=== PATIENT | female | born 1940 | race Caucasian/White ===

== ENCOUNTER 2017-10-12 15:45 | Emergency (ER) | payer MEDICARE, OTHER, MEDICAID ==
[2017-10-12 17:20] LABS: #Basophils 0.1 thou/uL (0.0-0.2); #Eosinphils 0.1 thou/uL (0.0-0.7); #Lymphocytes 3.3 thou/uL (1.20-3.40); #Monocytes 0.6 thou/uL (0.11-0.59); #Neutrophils 4.7 thou/uL (1.40-6.50); %Eosinophils 1.6 % (0.0-10.0); %Lymphocytes 37.4 % (21.0-51.0); %Monocytes 6.9 % (0.0-10.0); Hematocrit 41.2 % (36.0-47.0); Mean Platelet Volume 6.3 fL (7.4-10.4); Red Blood Cell (RBC) Count 4.38 mill/uL (4.20-5.40); White Blood Cell (WBC) Count 8.9 thou/uL (4.8-10.8)
[2017-10-12 17:42] LABS: ALT (SGPT) 12 U/L (8-55); AST (SGOT) 15 U/L (5-34); Alkaline Phosphatase 109 U/L (40-150); Anion Gap 13 mmol/L (10-20); BUN (Urea Nitrogen) 17 mg/dL (9.8-20.1); Bilirubin, Total 0.9 mg/dL (0.2-1.2); CK (CPK) 37 U/L (29-168); Calc. Creatinine Clearance 0 mL/min (70-130); Calcium 9.6 mg/dL (7.8-10.44); Carbon Dioxide 24 mmol/L (23-31); Chloride 100 mmol/L (98-107); Estimated GFR-MDRD 54; Globulin 3.3 g/dL (2.4-3.5); Magnesium 1.9 mg/dL (1.6-2.6); Protein, Total 7.3 g/dL (6.0-8.3)
[2017-10-12 17:46] LABS: Troponin I Less than 0.010 ng/mL (< 0.028)
--- NOTE | 2017-10-12 18:00 | CT ---
CT BRAIN WITHOUT CONTRAST: Date: 10/12/17 HISTORY: Injury. COMPARISON: CT brain dated 03/02/17. FINDINGS: Left parieto-occipital and encephalomalacia is similar. There is, however, new from the prior examina tion encephalomalacia of the inferior left frontal lobe. Extensive microvascular ischemic changes. No hemorrhage. Left frontal calcified extra-axial mass is similar. No hydrocephalus. Moderate atrophy . IMPRESSION: 1. No acute hemorrhage. 2. New from the comparison examination left inferior frontal encephalomalacia likely from an infarct ion. 3. Extensive chronic microvascular ischemic changes. POS: [facility]
--- NOTE | 2017-10-12 18:01 | CT ---
CT CERVICAL SPINE WITHOUT CONTRAST: HISTORY: Injury. Fall. COMPARISON: CT cervical spine 01/03/2017. FINDINGS: The occipital condyles and odontoid process are intact. There is no acute fracture or malalignment. Moderate uncinate process hypertrophy from C4-C7. There is anterolisthesis 2 mm of C4 on C5. Moderate degenerative disc space height loss at C5-6 and C6-7. The mastoids are clear. Lung apices are clear. IMPRESSION: No acute fracture or malalignment of the cervical spine. POS: [facility]
--- NOTE | 2017-10-12 18:21 | RAD ---
CHEST ONE VIEW HISTORY: Fall. COMPARISON: Chest one view 03/02/2017. FINDINGS: Port-A-Cath is in place with the tip at the inferior SVC. Cardiac silhouette and mediastinal contour s are similar. No pulmonary consolidation, pneumothorax, or effusion. IMPRESSION: No acute intrathoracic abnormality. POS: [facility]
== END 2017-10-12 19:00 ==
LOC: ERS 15:45
DX: S00.03XA Contusion of scalp, initial encounter (principal); E11.9 Type 2 diabetes mellitus without complications; I10 Essential (primary) hypertension; E78.5 Hyperlipidemia, unspecified; Z79.82 Long term (current) use of aspirin; Z79.84 Long term (current) use of oral hypoglycemic drugs; Z79.02 Long term (current) use of antithrombotics/antiplatelets; Z79.899 Other long term (current) drug therapy; W19.XXXA Unspecified fall, initial encounter
CPT/HCPCS: 36415; 70450; 71010; 72125; 80053; 82550; 82553; 83735; 84484; 85025; 93005

== ENCOUNTER 2017-10-20 11:12 | Emergency (ER) | payer MEDICARE, OTHER, MEDICAID ==
[2017-10-20 12:24] LABS: #Eosinphils 0.1 thou/uL (0.0-0.7); #Lymphocytes 2.1 thou/uL (1.20-3.40); #Monocytes 0.4 thou/uL (0.11-0.59); #Neutrophils 4.6 thou/uL (1.40-6.50); %Basophils 0.2 % (0.0-1.0); %Eosinophils 0.8 % (0.0-10.0); %Lymphocytes 29.5 % (21.0-51.0); %Monocytes 5.2 % (0.0-10.0); Mean Platelet Volume 6.2 fL (7.4-10.4); Red Blood Cell (RBC) Count 4.38 mill/uL (4.20-5.40); White Blood Cell (WBC) Count 7.2 thou/uL (4.8-10.8)
--- NOTE | 2017-10-20 12:28 | CT ---
NONCONTRAST BRAIN CT SCAN: Date: 10/20/17 HISTORY: 76-year-old female with fall. COMPARISON: 10/12/17. FINDINGS: Stable bilateral atrophy and chronic white matter ischemic changes, as well as stable left frontal an d occipitoparietal encephalomalacia. Stable calcified left frontal extra-axial mass. Small, punctate, bilateral basal ganglia lacunar infarcts, stable. No focal mass or midline shift. No intra or extra- axial hemorrhage. IMPRESSION: No mass, hemorrhage, or other acute process. Stable atrophy, chronic white matter ischemic changes, a nd old infarct changes. Stable calcified left frontal extra-axial calcified mass. POS: [facility]
[2017-10-20 12:29] LABS: Prothrombin Time 12.8 SEC (12.0-14.7)
--- NOTE | 2017-10-20 12:42 | CT ---
CERVICAL SPINE CT SCAN WITHOUT IV CONTRAST: Date: 10/20/17 HISTORY: 76-year-old female with fall while walking to the bathroom this morning, with history of frequent david or falls. COMPARISON: 10/12/17. FINDINGS: Multilevel disc osteophytosis, particularly at C5-C6 and C6-C7, with some variable severity, mostly m ild to moderate canal, lateral recess, and foraminal stenosis. No evidence for acute fracture or face t dislocation. IMPRESSION: No acute fracture or facet dislocation. Cervical spondylosis. Stable from prior study. POS: [facility]
[2017-10-20 12:47] LABS: ALT (SGPT) 14 U/L (8-55); AST (SGOT) 15 U/L (5-34); Alkaline Phosphatase 112 U/L (40-150); Anion Gap 13 mmol/L (10-20); BUN (Urea Nitrogen) 20 mg/dL (9.8-20.1); Bilirubin, Total 1.6 mg/dL (0.2-1.2); Calc. Creatinine Clearance 0 mL/min (70-130); Calcium 9.9 mg/dL (7.8-10.44); Carbon Dioxide 26 mmol/L (23-31); Chloride 101 mmol/L (98-107); Estimated GFR-MDRD 56; Protein, Total 6.9 g/dL (6.0-8.3)
[2017-10-20 12:50] LABS: Troponin I Less than 0.010 ng/mL (< 0.028)
[2017-10-20 14:46] LABS: Bilirubin Negative (Negative); Blood, Urine Negative (Negative); Glucose, Urine (Dipstick) Negative (Negative); Ketone, Urine Negative (Negative); Nitrite Negative (Negative); Protein, Urine (Dipstick) Negative (Neg-Trace)
[2017-10-20 14:49] LABS: Bacteria/HPF None Seen HPF (None Seen); Hyaline Casts/LPF 0-3 HYALINE CAST LPF (0-3 Hyaline); RBC/HPF 0-3 HPF (0-3); Squamous Epithelial 0-3 HPF (0-3); WBC/HPF 21-50 HPF (0-3)
--- NOTE | 2017-11-14 10:42 | EKG ---
Test Reason : FALL Blood Pressure : / mmHG Vent. Rate : 068 BPM Atrial Rate : 068 BPM P-R Int : 204 ms QRS Dur : 082 ms QT Int : 422 ms P-R-T Axes : 039 -48 082 degrees QTc Int : 448 ms Normal sinus rhythm Left axis deviation Low voltage QRS Septal infarct , age undetermined Inferior infarct , age undetermined Abnormal ECG Confirmed by FRED Noland, ESTEFANY ([id number]), desk editor MIKY WHITMORE ([id number]) on 11/14/2017 10:42:06 AM Referred By: FRED Confirmed By:ESTEFANY IBARRA M.D.
== END 2017-10-20 17:40 ==
LOC: ERS 11:12
DX: S09.90XA Unspecified injury of head, initial encounter (principal); N39.0 Urinary tract infection, site not specified; F03.90 Unspecified dementia, unspecified severity, without behavioral disturbance, psychotic disturbance, mood disturbance, and anxiety; E11.9 Type 2 diabetes mellitus without complications; I10 Essential (primary) hypertension; E78.5 Hyperlipidemia, unspecified; Z86.73 Personal history of transient ischemic attack (TIA), and cerebral infarction without residual deficits; Z79.899 Other long term (current) drug therapy; Z79.82 Long term (current) use of aspirin; Z79.84 Long term (current) use of oral hypoglycemic drugs; W18.30XA Fall on same level, unspecified, initial encounter; Y93.01 Activity, walking, marching and hiking
CPT/HCPCS: 36415; 70450; 72125; 80053; 81003; 81015; 82553; 83735; 84484; 85025; 85610; 93005; 96360

== ENCOUNTER 2018-01-05 08:55 | Emergency (ER) | payer MEDICARE, MEDICAID ==
--- NOTE | 2018-01-05 10:23 | RAD ---
LEFT HAND THREE VIEWS: History: 77-year-old female with history of left hand pain following a fall earlier this morning. FINDINGS: Significant osteoarthrosis changes noted of the hand and wrist, particularly the trapezium first meta carpal joint with extensive hypertrophic osteophytosis. Bony demineralization. No evidence for acute fracture or dislocation. IMPRESSION: Degenerative and osteoarthrosis changes of the left hand and wrist without fracture or dislocation. POS: [facility]
--- NOTE | 2018-01-05 10:25 | CT ---
CT OF BRAIN PERFORMED WITHOUT CONTRAST ENHANCEMENT: Date: 01/05/18 HISTORY: Fall earlier this morning with head injury. COMPARISON: 10/20/17. FINDINGS: There is generalized ventricular and sulcal prominence. There are chronic ischemic white matter shetty es noted and there are areas of encephalomalacia in the left frontal and occipital lobes. These appea r stable. A calcified extra-axial mass over the left frontal convexity is most likely a calcified men ingioma. It is also unchanged. IMPRESSION: 1. Atrophy with chronic white matter changes and encephalomalacia changes of the left frontal and oc cipital lobes. 2. Soft tissue swelling over the left frontal and periorbital region. No fluid seen within the sinus es. No acute intracranial abnormalities. POS: [facility]
--- NOTE | 2018-01-05 10:26 | CT ---
CT OF THE FACE WITHOUT CONTRAST: Comparison: None. History: Fall earlier this morning trying to get on the toilet. Facial trauma with pain and swelling. Technique: Multiple contiguous axial images were obtained in a CT of the face without contrast. Sagit radames and coronal reformats were performed. FINDINGS: There is moderate left facial soft tissue swelling. No facial fractures are seen. The paranasal sinus es are well aerated without opacification or mucosal thickening. The globes and retrobulbar soft tissues are unremarkable. Encephalomalacia is seen in the left fronta l lobe and there are hypodensities in the periventricular white matter consistent with small vessel i schemic disease. IMPRESSION: Soft tissue swelling without evidence of facial fracture. POS: [facility]
--- NOTE | 2018-01-05 10:27 | CT ---
CT OF THE CERVICAL SPINE WITHOUT CONTRAST: Date: 01/05/18 COMPARISON: 10/20/17. HISTORY: Fall this morning with neck pain and head trauma. TECHNIQUE: Multiple contiguous axial images were obtained in a CT of the cervical spine without contrast. Sagitt al and coronal reformats were performed. FINDINGS: There are moderate degenerative changes in the cervical spine. The vertebral bodies demonstrate jm l height and alignment without fracture or subluxation. No prevertebral soft tissue swelling is seen. The posterior facets are well aligned. Normal alignment of the skull base with the cervical spine is seen. IMPRESSION: Moderate degenerative changes of the cervical spine without acute osseous abnormality. POS: [facility]
== END 2018-01-05 11:16 | disposition home or self-care (01) ==
LOC: ERS 08:55
DX: S00.83XA Contusion of other part of head, initial encounter (principal); S60.222A Contusion of left hand, initial encounter; E11.9 Type 2 diabetes mellitus without complications; E78.5 Hyperlipidemia, unspecified; F03.90 Unspecified dementia, unspecified severity, without behavioral disturbance, psychotic disturbance, mood disturbance, and anxiety; H26.9 Unspecified cataract; I10 Essential (primary) hypertension; Z86.73 Personal history of transient ischemic attack (TIA), and cerebral infarction without residual deficits; Z85.3 Personal history of malignant neoplasm of breast; Z79.82 Long term (current) use of aspirin; Z79.84 Long term (current) use of oral hypoglycemic drugs; Z79.899 Other long term (current) drug therapy; W01.0XXA Fall on same level from slipping, tripping and stumbling without subsequent striking against object, initial encounter; Y92.89 Other specified places as the place of occurrence of the external cause
CPT/HCPCS: 70450; 70486; 72125

== ENCOUNTER 2018-03-18 12:19 | Outpatient (CLI) | payer MEDICARE, MEDICAID ==
[2018-03-18] MEDS ORDERED: Iopamidol 370 76% 100 ML VIAL ONE (13:23)
--- NOTE | 2018-03-18 13:57 | CT ---
CT CHEST WITH IV CONTRAST: Date: 03/18/18 HISTORY: Breast cancer with metastatic disease and good response to therapy. Restaging. COMPARISON: 01/03/17. FINDINGS: Parenchymal scarring of the right upper lobe and the right breast are apparent. No lung mass, pleural fluid, or mediastinal adenopathy. Left subclavian MediPort is in place. There is calcification in th e arterial structures. IMPRESSION: 1. Postoperative changes. No evidence of recurrent metastatic disease. 2. Atherosclerosis. POS: [facility]
== END 2018-03-18 12:20 | disposition home or self-care (01) ==
LOC: ULT 12:19
PROVIDERS: ATTEND Internal Medicine Hematology & Oncology
DX: Z51.11 Encounter for antineoplastic chemotherapy (principal); C50.411 Malignant neoplasm of upper-outer quadrant of right female breast; Z79.899 Other long term (current) drug therapy; Z98.890 Other specified postprocedural states; I70.0 Atherosclerosis of aorta; I08.1 Rheumatic disorders of both mitral and tricuspid valves; I37.1 Nonrheumatic pulmonary valve insufficiency; C79.9 Secondary malignant neoplasm of unspecified site
CPT/HCPCS: 71260; 82565; 93306; J1642

== ENCOUNTER 2018-05-09 03:08 | Emergency (ER) | payer MEDICARE, MEDICAID ==
--- NOTE | 2018-05-09 07:32 | RAD ---
THREE VIEWS RIGHT ANKLE: COMPARISON: None. HISTORY: Fall with right ankle pain. FINDINGS: Three views right ankle show no evidence of acute fracture or dislocation. Moderate mottled soft tis geovanny swelling is seen. No degenerative changes are present. IMPRESSION: No evidence of acute osseous abnormality. POS: [facility]
== END 2018-05-09 05:00 | disposition home or self-care (01) ==
LOC: ERS 03:08
DX: S93.401A Sprain of unspecified ligament of right ankle, initial encounter (principal); E11.9 Type 2 diabetes mellitus without complications; I10 Essential (primary) hypertension; E78.5 Hyperlipidemia, unspecified; F03.90 Unspecified dementia, unspecified severity, without behavioral disturbance, psychotic disturbance, mood disturbance, and anxiety; Z86.73 Personal history of transient ischemic attack (TIA), and cerebral infarction without residual deficits; Z85.3 Personal history of malignant neoplasm of breast; Z79.899 Other long term (current) drug therapy; Z79.84 Long term (current) use of oral hypoglycemic drugs; Z79.82 Long term (current) use of aspirin; W01.0XXA Fall on same level from slipping, tripping and stumbling without subsequent striking against object, initial encounter

== ENCOUNTER 2019-10-16 12:02 | Emergency (ER) | payer MEDICARE, MEDICAID ==
--- NOTE | 2019-10-16 13:53 | CT ---
CT HEAD WITHOUT CONTRAST: INDICATION: Fall. COMPARISON: CT head 01/05/2018. FINDINGS: Cortical atrophy. Encephalomalacia in the left frontal lobe. Encephalomalacia in the left parietooc cipital lobe. Moderately severe chronic ischemic white matter change. These findings are all stable . No evidence of acute cortical infarct. There is a new lucency in the head of the caudate on the r ight since the prior exam indicating an old lacunar infarct that has occurred since that time. Calcification of dural base superior left frontal lobe to the left of midline is stable possibly repr esenting densely calcified meningioma. Mastoids and sinuses are clear. IMPRESSION: Old infarcts and chronic changes as described above. No evidence of acute process. POS: [facility]
--- NOTE | 2019-10-16 14:03 | RAD ---
Right shoulder: 3 views INDICATION:Shoulder pain FINDINGS: Humeral head has normal position. AC joint normally aligned. No fracture, dislocation, or other acute process. No soft tissue abnormality. IMPRESSION: No acute finding
== END 2019-10-16 15:30 | disposition home or self-care (01) ==
LOC: ERS 12:02
DX: S00.03XA Contusion of scalp, initial encounter (principal); I10 Essential (primary) hypertension; K21.9 Gastro-esophageal reflux disease without esophagitis; E78.5 Hyperlipidemia, unspecified; E11.40 Type 2 diabetes mellitus with diabetic neuropathy, unspecified; F03.90 Unspecified dementia, unspecified severity, without behavioral disturbance, psychotic disturbance, mood disturbance, and anxiety; F32.9 Major depressive disorder, single episode, unspecified; F41.9 Anxiety disorder, unspecified; Z79.01 Long term (current) use of anticoagulants; Z79.899 Other long term (current) drug therapy; Z79.82 Long term (current) use of aspirin; Z86.73 Personal history of transient ischemic attack (TIA), and cerebral infarction without residual deficits; W18.30XA Fall on same level, unspecified, initial encounter
CPT/HCPCS: 70450

== ENCOUNTER 2020-01-22 14:25 | Emergency (ER) | payer MEDICARE, OTHER ==
--- NOTE | 2020-01-22 15:03 | RAD ---
RADIOGRAPH LEFT ANKLE 3VIEWS: DATE: 01/22/2020 HISTORY: 79-year-old female with acute traumatic left ankle pain FINDINGS: There is no dislocation. No fracture is identified. Diffuse osteopenia. Lateral and anterior soft tis geovanny edema. Talar dome is maintained. Ankle mortise is congruent. IMPRESSION: 1. No fracture. 2. Osteoporosis.
--- NOTE | 2020-01-22 16:12 | CT ---
CT BRAIN NONCONTRAST: DATE: 01/22/2020 HISTORY: 79-year-old female status post syncope COMPARISON: 10/16/2019 FINDINGS: Focal pleural calcification over left frontal parasagittal convexity, probably calcified meningioma. Moderate size region of anterior left frontal encephalomalacia and gliosis. Moderate to large region of left occipital and parietal encephalomalacia and gliosis. Small lacunar infarctions right caudate head, left basal ganglia. No obstructive hydrocephalus, mass effect, midline shift, acute romina varial fracture, or acute intra-axial hemorrhage. No interval change overall. Diffuse atrophy. IMPRESSION: 1) no acute intracranial findings. 2) old left occipital and left parietal infarctions in left posterior cerebral artery and left middle cerebral artery territories. 3) old insult left frontal region. Probably old infarction. 3) tiny old lacunar infarctions of bilateral corpus striatum. 4) prominent calcified meningioma over left cerebral convexity.
== END 2020-01-22 19:13 ==
LOC: ERS 14:25
DX: S93.402A Sprain of unspecified ligament of left ankle, initial encounter (principal); F03.90 Unspecified dementia, unspecified severity, without behavioral disturbance, psychotic disturbance, mood disturbance, and anxiety; E11.9 Type 2 diabetes mellitus without complications; I10 Essential (primary) hypertension; E78.5 Hyperlipidemia, unspecified; Z86.73 Personal history of transient ischemic attack (TIA), and cerebral infarction without residual deficits; Z79.899 Other long term (current) drug therapy; Z79.82 Long term (current) use of aspirin; Z79.84 Long term (current) use of oral hypoglycemic drugs; W19.XXXA Unspecified fall, initial encounter
CPT/HCPCS: 29515; 70450; 93005

== ENCOUNTER 2020-09-12 16:07 | Inpatient (IN) | payer MEDICARE, MEDICAID ==
[~2020-09-12 16:07] MED LIST: Iopamidol-370 76% 500 ML 1 ML ONE
[2020-09-12 17:03] LABS: #Eosinphils 0.1 thou/uL (0.0-0.7); #Lymphocytes 3.2 thou/uL (1.20-3.40); #Monocytes 0.6 thou/uL (0.11-0.59); #Neutrophils 5.5 thou/uL (1.40-6.50); %Basophils 0.4 % (0.0-1.0); %Eosinophils 1.3 % (0.0-10.0); %Lymphocytes 33.7 % (21.0-51.0); %Monocytes 6.6 % (0.0-10.0); %Neutrophils 57.9 % (42.0-75.0); Hemoglobin 11.3 g/dL (12.0-16.0); Mean Corpuscular HGB CONC 32.8 g/dL (32.0-36.0); Mean Corpuscular Hemoglobin 29.7 pg (27.0-31.0); Mean Corpuscular Volume 90.4 fL (78.0-98.0); Mean Platelet Volume 6.7 fL (7.4-10.4); Platelet Count 416 thou/uL (130-400); RBC Distribution Width 13.4 % (11.5-14.5); White Blood Cell (WBC) Count 9.5 thou/uL (4.8-10.8)
[2020-09-12 17:12] LABS: INR-International Normal Ratio 0.9; PTT 29.1 sec (22.9-36.1); Prothrombin Time 12.7 sec (12.0-14.7)
[2020-09-12 17:24] LABS: ALT (SGPT) 12 U/L (8-55); AST (SGOT) 13 U/L (5-34); Albumin 3.4 g/dL (3.4-4.8); Alkaline Phosphatase 103 U/L (40-110); Anion Gap 13 mmol/L (10-20); BUN (Urea Nitrogen) 24 mg/dL (9.8-20.1); Bilirubin, Total 0.3 mg/dL (0.2-1.2); Calc. Creatinine Clearance 0 mL/min (70-130); Calcium 8.8 mg/dL (7.8-10.44); Carbon Dioxide 25 mmol/L (23-31); Chloride 100 mmol/L (98-107); Estimated GFR-MDRD 49; Glucose 275 mg/dL (83-110); Potassium 3.8 mmol/L (3.5-5.1); Protein, Total 6.4 g/dL (6.0-8.3); Sodium 134 mmol/L (136-145)
[2020-09-12] MEDS ORDERED: Piperacillin/Tazobactam 4.5 GM VIAL ONE (19:07)
[2020-09-12] MEDS ORDERED: Calcium Carbonate 500 MG ChewTAB PO PRN (19:39)
[2020-09-12] MEDS ORDERED: Acetaminophen 650 MG Suppository PR PRN (19:39)
[2020-09-12] MEDS ORDERED: Acetaminophen 325 MG TAB PO PRN (19:39)
[2020-09-12] MEDS ORDERED: Ondansetron PF 4 MG/2 ML Vial IVP PRN (19:39)
[2020-09-12] MEDS ORDERED: HYDROcodone/Acetaminophen 5/325 mg Tablet PO PRN (19:39)
[2020-09-12] MEDS ORDERED: Ondansetron ODT 4 MG TAB PO PRN (19:39)
--- NOTE | 2020-09-12 19:47 | CT ---
CT ABDOMEN AND PELVIS WITH IV CONTRAST: 09/12/20 INDICATIONS: Abdominal pain. GI bleed. No comparison CT abdomen and pelvis exams. FINDINGS: The lung bases appear clear. The liver, spleen and pancreas unremarkable. The stomach shows a small fixed sliding diaphragmatic hernia. Adrenal gland appear normal. The kidneys are unremarkable. No hydronephrosis. Small bowel loops normal caliber. The colon shows mild gaseous distention. There is focal area of lum inal narrowing with an apple core type appearance in the right colon. Mucosal neoplasm at this site s hould be excluded with colonoscopy. There are scattered diverticula. There is mural thickening and luminal narrowing with diffuse diverti culosis involving the sigmoid colon. There appears to be some inflammatory stranding around the sigmo id and findings may represent acute diverticulitis. No evidence of fluid or abscess collection. Urinary bladder shows mild bladder wall thickening. Patient appears to be post hysterectomy. The aorta shows calcification without aneurysm. No free fluid. Osseous structures unremarkable. Mild anterior wedging of the T12 vertebra. IMPRESSION: 1. Diverticulosis of the sigmoid colon with mural thickening, luminal narrowing and surrounding inflammatory change suggesting diverticulitis. The mucosa in this region should be evaluated with col onoscopy after appropriate medical treatment if there are signs of acute infection. 2. There is a focal area of luminal narrowing in the right colon which should also be cleared wi th elective colonoscopy. 3. A small fixed sliding diaphragmatic hernia noted. POS: [facility]
--- NOTE | 2020-09-12 19:50 | PDOC.HHP ---
Hospitalist HPI - History of Present Illness rectal bleeding History of Present Illness: history is limited most of the information taken from ems and emr. patient has alzherimer dementia and is not sure why she is in the hospital. as per [facility] this is her base. no family members where present at the moment of my evaluation Case of an 79y/o female with pmhx of alzheimer dementia, cad, hx of stroke, dmt2, hld, iron def anemia, breast ca and htn who comes to hospital transfered from [facility] due to gi bleeding. apparently patient was on her usual state of health until today when while changing her, [facility] personal noticed there was some hematochezia and blood clots on her underwear for which she was brought to hospital for evaluation. at the ED pt undewent abdominal ct which showed diverticulitis and possible colonic mass for which hospitalist was called for further evaluation and management. patient denies any abdominal pain fever chills or malaise Hospitalist ROS - Review of Systems ROS unobtainable: due to mental status Hospitalist History - Past Surgical History Past Surgical History: reports: Appendectomy, Hysterectomy - Family History Other Family History: unable to asses due to mental status - Social History Other Social History: unable to asses due to mental status - Exam General Appearance: NAD, awake alert Eye: PERRL, anicteric sclera ENT: normocephalic atraumatic, no oropharyngeal lesions Neck: supple, symmetric, no JVD, no thyromegaly Heart: RRR, no murmur, no gallops Respiratory: CTAB, no wheezes, no rales Gastrointestinal: soft, non-tender, non-distended Extremities: no cyanosis, no clubbing, no edema Skin: normal turgor, no lesions, no rashes Neurological: cranial nerve grossly intact, normal sensation to touch, no weakness Musculoskeletal: normal tone, normal strength Psychiatric: normal affect, normal behavior, oriented to person Hospitalist Results - Labs Result Diagrams: 09/12/20 16:52 09/12/20 16:52 Lab results: WBC 9.5 thou/uL (4.8-10.8) 09/12/20 16:52 Hgb 11.3 g/dL (12.0-16.0) L 09/12/20 16:52 Hct 34.3 % (36.0-47.0) L 09/12/20 16:52 MCV 90.4 fL (78.0-98.0) 09/12/20 16:52 Plt Count 416 thou/uL (130-400) H 09/12/20 16:52 Neutrophils % 57.9 % (42.0-75.0) 09/12/20 16:52 Sodium 134 mmol/L (136-145) L 09/12/20 16:52 Potassium 3.8 mmol/L (3.5-5.1) 09/12/20 16:52 Chloride 100 mmol/L (98-107) 09/12/20 16:52 Carbon Dioxide 25 mmol/L (23-31) 09/12/20 16:52 BUN 24 mg/dL (9.8-20.1) H 09/12/20 16:52 Creatinine 1.08 mg/dL (0.6-1.1) 09/12/20 16:52 Glucose 275 mg/dL (83-110) H 09/12/20 16:52 Lactic Acid 2.8 mmol/L (0.5-2.2) H 09/12/20 16:52 Calcium 8.8 mg/dL (7.8-10.44) 09/12/20 16:52 Total Bilirubin 0.3 mg/dL (0.2-1.2) 09/12/20 16:52 AST 13 U/L (5-34) 09/12/20 16:52 ALT 12 U/L (8-55) 09/12/20 16:52 Alkaline Phosphatase 103 U/L (40-110) 09/12/20 16:52 Serum Total Protein 6.4 g/dL (6.0-8.3) 09/12/20 16:52 Albumin 3.4 g/dL (3.4-4.8) 09/12/20 16:52 - Radiology Interpretation CT scan - abdomen Additional Comment: Diverticulosis of the sigmoid colon with mural thickening, luminal narrowing and surrounding inflammatory change suggesting diverticulitis. The mucosa in this region should be evaluated with col onoscopy after appropriate medical treatment if there are signs of acute infection. 2. There is a focal area of luminal narrowing in the right colon which should also be cleared wi elective colonoscopy. 3. A small fixed sliding diaphragmatic hernia noted. Hospitalist H&P A/P - Problem (1) Diverticulitis Code(s): K57.92 - DVTRCLI OF INTEST, PART UNSP, W/O PERF OR ABSCESS W/O BLEED Status: Acute (2) Sepsis Code(s): A41.9 - SEPSIS, UNSPECIFIED ORGANISM Status: Acute Qualifiers: Sepsis type: Escherichia coli Qualified Code(s): A41.51 - Sepsis due to Escherichia coli [E. coli] (3) Breast cancer Status: Chronic Qualifiers: Breast location: unspecified site of breast Patient sex: female Laterality: right Qualified Code(s): C50.911 - Malignant neoplasm of unspecified site of right female breast (4) Diabetes 1.5, managed as type 2 Code(s): E13.9 - OTHER SPECIFIED DIABETES MELLITUS WITHOUT COMPLICATIONS Status: Chronic (5) H/O: CVA (cerebrovascular accident) Code(s): Z86.73 - PRSNL HX OF TIA (TIA), AND CEREB INFRC W/O RESID DEFICITS Status: Chronic (6) Hypertension Code(s): I10 - ESSENTIAL (PRIMARY) HYPERTENSION Status: Chronic Qualifiers: Hypertension type: essential hypertension Qualified Code(s): I10 - Essential (primary) hypertension - Plan Plan: case of an 79y/o female with the stated pmhx who present with hematochezia and sepsis secondary to diverticulitis\ sepsis / diverticulitis - systolic blood pressure below 90 + elevated LA at 2.[address] showing diverticulitis - sepsis bundles started, cultures taken ivfs administer started on borad spectrum abx - given vanc + zosyn at the ED, will continue with zosyn - f/u LA - f/u cultures - monitor hg - will likely require colonoscopy at some point after diverticulitis is treated for possible colonic mass - holding dvt prophylaxis due to hematochezia consider restarting 24-48 after tx cad / hld continue with asa, plavix and statin will hold acei due to low b/p, consider restarting when more stable hx cva - on secondary prevention with asa + satin htn - will hold medication due to low b/p and sepsis breast ca - continue home meds dm - acc + ss - long acting insulin
[2020-09-12 20:00] LABS: Lactic Acid 1.1 mmol/L (0.5-2.2)
[2020-09-12] MEDS ORDERED: Vancomycin 1 GM/200 ML BAG ONE (20:43)
[2020-09-12] MEDS ORDERED: Dextrose 5% in Water 1,000 ML IV PRN (21:07)
[2020-09-12] MEDS ORDERED: HumaLOG 300 UNITS/3 ML VIAL SC PRN (21:07)
[2020-09-12] MEDS ORDERED: Dextrose 50% Abboject 50 ML SYRINGE SLOW IVP PRN (21:07)
[2020-09-12] MEDS: Sodium Chloride 0.9% 1,000 ML IV SCH (23:33)
[2020-09-12] MEDS: Piperacillin/Tazobactam 4.5 GM in Sodium Chloride 0.9% 100 ML IVPB SCH (23:33)
[2020-09-13 04:55] LABS: ALT (SGPT) 13 U/L (8-55); AST (SGOT) 13 U/L (5-34); Albumin 3.2 g/dL (3.4-4.8); Alkaline Phosphatase 79 U/L (40-110); Anion Gap 11 mmol/L (10-20); BUN (Urea Nitrogen) 19 mg/dL (9.8-20.1); Bilirubin, Total 0.5 mg/dL (0.2-1.2); Calc. Creatinine Clearance 35 mL/min (70-130); Calcium 8.6 mg/dL (7.8-10.44); Carbon Dioxide 21 mmol/L (23-31); Chloride 108 mmol/L (98-107); Estimated GFR-MDRD 61; Globulin 2.8 g/dL (2.4-3.5); Glucose 98 mg/dL (83-110); Potassium 4.1 mmol/L (3.5-5.1); Sodium 136 mmol/L (136-145)
[2020-09-13] MEDS: Piperacillin/Tazobactam 4.5 GM in Sodium Chloride 0.9% 100 ML IVPB SCH ×4 (05:21→20:47)
[2020-09-13 05:39] LABS: Band 9 % (5-11); Eosinophils 1 % (0-10); Hemoglobin 10.1 g/dL (12.0-16.0); Lymphocytes 46 % (21-51); MDiff Complete? YES; Mean Corpuscular HGB CONC 33.3 g/dL (32.0-36.0); Mean Platelet Volume 6.9 fL (7.4-10.4); Monocytes 5 % (0-10); Neutrophil 38 % (42-75); Platelet Count 379 thou/uL (130-400); RBC Distribution Width 13.4 % (11.5-14.5); Red Blood Cell (RBC) Count 3.38 mill/uL (4.20-5.40)
[2020-09-13] MEDS: Anastrozole 1 MG TAB PO SCH (09:55)
[2020-09-13] MEDS: Aspirin 81 mg Enteric Coated Tablet PO SCH (09:56)
[2020-09-13] MEDS: Clopidogrel Bisulfate 75 MG TAB PO SCH (09:56)
[2020-09-13 12:56] LABS: SARS-CoV-2 MS2 Positive; SARS-CoV-2 N Gene Negative; SARS-CoV-2 S Gene Negative; SARS-CoV-2 by NAA Not Detected (NotDetected); SARS-CoV-2 orf1ab Negative
--- NOTE | 2020-09-13 16:20 | PDOC.HOSPP ---
- Subjective Encounter Date: 09/13/20 Subjective: Pt denies any acute issues. Denies N/V or abd pain. - Objective Vital Signs & Weight: Vital Signs (12 hours) Temp Pulse Resp BP Pulse Ox 09/13/20 15:05 98.7 F 67 14 159/72 H 97 09/13/20 11:30 97.7 F 62 16 132/70 98 09/13/20 07:35 97.8 F 70 17 138/68 93 L Weight Admit Weight 97 lb 7.109 oz Weight 97 lb 7.109 oz I&O: 09/12/20 09/13/20 09/14/20 06:59 06:59 06:59 Intake Total 660 Balance 660 Result Diagrams: 09/13/20 03:59 09/13/20 03:59 Additional Labs: Accuchecks 09/13/20 09/13/20 05:42 00:15 POC Glucose 87 104 H Hospitalist ROS - Review of Systems Constitutional: denies: fever, chills, sweats, weakness, malaise, other Eyes: denies: pain, vision change, conjunctivae inflammation, eyelid inflammation, redness, other ENT: denies: ear pain, ear discharge, nose pain, nose discharge, nose congestion, mouth pain, mouth swelling, throat pain, throat swelling, other Respiratory: denies: cough, dry, shortness of breath, hemoptysis, SOB with excertion, pleuritic pain, sputum, wheezing, other Cardiovascular: denies: chest pain, palpitations, orthopnea, paroxysmal noc. dyspnea, edema, light headedness, other Gastrointestinal: reports: diarrhea. denies: nausea, vomiting, abdominal pain, constipation, melena, hematochezia, other Genitourinary: denies: dysuria, frequency, incontinence, hematuria, retention, other Musculoskeletal: denies: neck pain, shoulder pain, arm pain, back pain, hand pain, leg pain, foot pain, other Skin: denies: rash, lesions, valeriy, bruising, other Neurological: denies: weakness, numbness, incoordination, change in speech, confusion, seizures, other - Medication Medications: Active Medications Generic Name Dose Route Start Last Admin Trade Name Freq PRN Reason Stop Dose Admin Anastrozole 1 mg 09/13/20 09:00 09/13/20 09:55 Anastrozole 1 Mg Tab PO 1 mg QAM YESI Administration Aspirin 81 mg 09/13/20 09:00 09/13/20 09:56 Aspirin 81 Mg Enteric Coated Tablet PO 81 mg DAILY YESI Administration Clopidogrel Bisulfate 75 mg 09/13/20 09:00 09/13/20 09:56 Clopidogrel Bisulfate 75 Mg Tab PO 75 mg DAILY YESI Administration Sodium Chloride 1,000 mls @ 60 mls/hr 09/12/20 19:45 09/12/20 23:33 Normal Saline 0.9% IV 1,000 mls .[id number] YESI Administration Piperacillin Sod/Tazobactam 100 mls @ 200 mls/hr 09/13/20 14:00 09/13/20 15:00 Sod 4.5 gm/ Sodium Chloride IVPB 100 mls 0200,0800,1400,2000 YESI Administration Sodium Chloride 10 ml 09/13/20 09:00 09/13/20 09:55 Flush - Normal Saline 10 Ml Syringe IVF Not Given Q12HR YESI - Exam General Appearance: NAD, awake alert Eye: PERRL, anicteric sclera ENT: normocephalic atraumatic, no oropharyngeal lesions Neck: supple, symmetric, no JVD, no thyromegaly, no lymphadenopathy Heart: RRR, no murmur, no gallops, no rubs Respiratory: CTAB, no wheezes, no rales, no ronchi, normal chest expansion Gastrointestinal: soft, non-tender, non-distended, normal bowel sounds Extremities: no cyanosis, no clubbing, no edema Skin: no lesions, no rashes Neurological: no weakness, no focal deficits Musculoskeletal: normal strength, no muscle wasting Psychiatric: normal affect, normal behavior, not oriented (Thinks she is at the retirement) Hosp A/P (1) Dementia Code(s): F03.90 - UNSPECIFIED DEMENTIA WITHOUT BEHAVIORAL DISTURBANCE Status: Acute Qualifiers: Dementia type: unspecified type Dementia behavioral disturbance: without behavioral disturbance Qualified Code(s): F03.90 - Unspecified dementia without behavioral disturbance Plan: Pt is not oriented to place, however not currently agitated. Cont supportive measures. (2) Diverticulitis Code(s): K57.92 - DVTRCLI OF INTEST, PART UNSP, W/O PERF OR ABSCESS W/O BLEED Status: Acute Plan: Currently denies abt pain. Now on liquid diet. Awaiting GI eval. Cont current abx. (3) ANANYA (acute kidney injury) Code(s): N17.9 - ACUTE KIDNEY FAILURE, UNSPECIFIED Status: Acute Plan: Resolved, cont IVF. Monitor Cr levels. (4) Diarrhea Code(s): R19.7 - DIARRHEA, UNSPECIFIED Status: Acute Qualifiers: Diarrhea type: unspecified type Qualified Code(s): R19.7 - Diarrhea, unspecified Plan: Still having diarrhea. Monitor for improvement. (5) Breast cancer Status: Chronic Qualifiers: Breast location: unspecified site of breast Patient sex: female Late rality: right Qualified Code(s): C50.911 - Malignant neoplasm of unspecified site of right female breast Plan: No acute issues at this time. Cont Anastrazole. (6) Diabetes 1.5, managed as type 2 Code(s): E13.9 - OTHER SPECIFIED DIABETES MELLITUS WITHOUT COMPLICATIONS Status: Chronic Plan: Monitor BG, cont home meds, cover with SSI. (7) Dehydration Code(s): E86.0 - DEHYDRATION Status: Resolved Plan: Resolved. Cont IVF. (8) Anemia Code(s): D64.9 - ANEMIA, UNSPECIFIED Status: Chronic Qualifiers: Anemia type: unspecified type Qualified Code(s): D64.9 - Anemia, unspecified Plan: Monitor Hg. Hold ASA and Plavix. - Plan continue antibiotics, GI proph
[2020-09-13 17:00] LABS: #Basophils 0.1 thou/uL (0.0-0.2); #Eosinphils 0.2 thou/uL (0.0-0.7); #Monocytes 0.6 thou/uL (0.11-0.59); #Neutrophils 6.7 thou/uL (1.40-6.50); %Eosinophils 1.3 % (0.0-10.0); %Lymphocytes 34.4 % (21.0-51.0); %Monocytes 5.4 % (0.0-10.0); %Neutrophils 57.8 % (42.0-75.0); Hemoglobin 11.1 g/dL (12.0-16.0); Mean Corpuscular HGB CONC 32.7 g/dL (32.0-36.0); Mean Corpuscular Hemoglobin 29.5 pg (27.0-31.0); Mean Corpuscular Volume 90.1 fL (78.0-98.0); Mean Platelet Volume 6.5 fL (7.4-10.4); Platelet Count 455 thou/uL (130-400); RBC Distribution Width 13.4 % (11.5-14.5); Red Blood Cell (RBC) Count 3.77 mill/uL (4.20-5.40); White Blood Cell (WBC) Count 11.6 thou/uL (4.8-10.8)
--- NOTE | 2020-09-13 19:14 | CON ---
DATE OF CONSULTATION: 09/13/2020 REQUESTING PHYSICIAN: Sergio Wang MD REASON FOR CONSULTATION: Diverticulitis, lower GI bleeding. HISTORY OF PRESENT ILLNESS: Waleska Ram is an 79-year-old woman with Alzheimer's dementia, also history significant for diabetes, coronary artery disease, and CVA. She is on aspirin and Plavix. She has a documented history of iron-deficiency anemia, though it is unclear what workup has been done for this before. She denies having ever undergone colonoscopy or any chronic gastrointestinal symptoms. She resides at a long term, but was sent here yesterday with concern for lower GI bleeding. She evidently was passing blood clots in her briefs yesterday. Since arrival here, she has continued to have multiple small bowel volume movements, which essentially consist of just liquid blood and clots. She has remained hemodynamically stable. Admission hemoglobin was 11.3, came down to 10.1 this morning. Notably, she is not having any abdominal pain, nausea, or vomiting with this. She has been somewhat confused, but she actually seems to understand all my questions and be able to answer them appropriately. Admission CT of the abdomen and pelvis demonstrates sigmoid diverticulitis as well as some narrowing in the right colon, which is suspicious for possible neoplasm. She was started on IV Zosyn. She has been getting a clear liquid diet. REVIEW OF SYSTEMS: Full review of systems including constitutional; head, eyes, ears, nose, and throat; GI; ; cardiovascular; respiratory; musculoskeletal; neurologic systems is negative except as noted in the HPI. PAST MEDICAL HISTORY: 1. Alzheimer's dementia. 2. Coronary artery disease. 3. CVA. 4. Hypertension. 5. Hyperlipidemia. 6. Diabetes, type 2. 7. Iron-deficiency anemia. 8. Breast cancer in the remote past. 9. Hysterectomy. 10. Appendectomy. ALLERGIES: SULFA AND CODEINE. MEDICATIONS: Outpatient medications: 1. Melatonin. 2. Aricept. 3. Trazodone. 4. Magnesium oxide. 5. Sertraline. 6. Lisinopril. 7. Atorvastatin. 8. Metformin. 9. Ferrous sulfate 325 mg daily. 10. Docusate 100 mg daily. 11. Aspirin 81 mg daily. 12. Plavix 75 mg daily. 13. Multivitamin daily. Additional inpatient medication: 1. Zosyn 4.5 g IV q.6 h. 2. Vancomycin, 1 g was administered in the emergency department. SOCIAL HISTORY: The patient resides at a long term. The patient has a listed medical power of erisa attorney, a friend, Ruthann López. I was unable to reach her by phone today. FAMILY HISTORY: The patient denies any known family history of colon cancer, though reliability of her recall is unclear. PHYSICAL EXAMINATION: VITAL SIGNS: Temperature 98.7, blood pressure 159/72, pulse 67, 97% oxygen saturation on room air. GENERAL: An 79-year-old woman, sitting up on the edge of the bed comfortably, in no distress. She is pleasantly confused. She had disrobed and the nurses are trying to get her clothes back on. SKIN: She is a bit pale. No jaundice. No rash visible or palpable. EYES: No scleral icterus. Extraocular movements intact. ENT: Mucous membranes moist. No oral lesions. LYMPHATICS: No submandibular or supraclavicular lymphadenopathy. THYROID: Nontender to palpation. HEART: Regular rate and rhythm. LUNGS: Clear to auscultation bilaterally. ABDOMEN: Flat. Bowel sounds are present. Soft and nontender to palpation throughout. EXTREMITIES: No peripheral edema. VESSELS: Radial pulses 2+ bilaterally. NEUROLOGIC: Cranial nerves 2 through 12 intact bilaterally. No focal deficits. LABORATORY STUDIES: Hemoglobin initially 11.3, down to 10.1 this morning; WBC is 10.0; platelets 379; and MCV 90. INR 0.9. Sodium 136, potassium 4.1, BUN 19, creatinine 0.89, and glucose 87. Lactic acid 1.4. Total bilirubin 0.5, alkaline phosphatase 79, AST 13, and ALT 13. COVID PCR negative. IMAGING STUDIES: CT of the abdomen and pelvis demonstrates acute sigmoid diverticulitis with no evidence of abscess. There is an area in the right colon with narrowing, suspicious for "apple-core lesion." The patient is post hysterectomy. ASSESSMENT AND PLAN: 1. Sigmoid diverticulitis, with hemorrhage. 2. Owakk-cl-dbtaohk anemia. 3. Abnormal CT scan of the colon, with possible apple-core lesion in the right colon. 4. Alzheimer's dementia. 5. History of cerebrovascular accident, on dual antiplatelet therapy. The patient's acute presentation seems most consistent with acute sigmoid diverticulitis, presenting as diverticular hemorrhage. The patient has remained hemodynamically stable, with some modest decline in hemoglobin since admission. Continue to monitor closely. Transfuse as needed. She has appropriately been started on Zosyn, which should be continued. Expect we should probably see resolution of this hemorrhage within the next day or 2. Apart from this, there is concerning finding on the CT, suggestive of possible apple-core lesion in the right colon. It does not appear she has ever undergone colonoscopy. This certainly needs to be followed up. However, colonoscopy would be higher risk in the context of acute diverticulitis. We are not going to plan on any colonoscopy right now. Ideally, would complete treatment with antibiotics, see resolution of the bleeding, and perform colonoscopy on an outpatient basis in 5 to 6 weeks. As the patient is otherwise essentially asymptomatic, we will let her have a full liquid diet for now. We will follow along with you. We will also check a CEA level with morning labs. Please call anytime with questions or concerns or significant changes in her clinical status. We will try again to get a hold of the patient's medical power of erisa attorney tomorrow. Job ID: [id number]
[2020-09-13] MEDS: Atorvastatin Calcium 10 MG TAB PO SCH (20:49)
[2020-09-13] MEDS: Insulin Glargine 10 UNITS in Pre-Filled Syringe 1 EACH SC SCH ×2 (20:54→21:06)
[2020-09-13] MEDS ORDERED: FLU VACC QS2020-21(65YR UP)/PF 240 MCG/0.7 ML SYRINGE IM ONE (21:00)
[2020-09-13] MEDS: Sodium Chloride 0.9% 1,000 ML IV SCH (21:08)
[2020-09-14] MEDS: Piperacillin/Tazobactam 4.5 GM in Sodium Chloride 0.9% 100 ML IVPB SCH ×4 (01:24→21:31)
[2020-09-14] MEDS: Sodium Chloride 0.9% 1,000 ML IV SCH ×3 (01:26→22:16)
[2020-09-14 04:57] LABS: Anion Gap 12 mmol/L (10-20); BUN (Urea Nitrogen) 13 mg/dL (9.8-20.1); Calc. Creatinine Clearance 31 mL/min (70-130); Carbon Dioxide 23 mmol/L (23-31); Chloride 106 mmol/L (98-107); Estimated GFR-MDRD 54; Glucose 109 mg/dL (83-110); Potassium 3.8 mmol/L (3.5-5.1); Sodium 137 mmol/L (136-145)
[2020-09-14] MEDS: Aspirin 81 mg Enteric Coated Tablet PO SCH (09:34)
[2020-09-14] MEDS: Anastrozole 1 MG TAB PO SCH (09:34)
[2020-09-14] MEDS: Clopidogrel Bisulfate 75 MG TAB PO SCH (09:34)
--- NOTE | 2020-09-14 11:53 | PDOC.HOSPP ---
- Subjective Encounter Date: 09/14/20 Subjective: No acute issues, however pt is still having blood clots in her stools. - Objective Vital Signs & Weight: Vital Signs (12 hours) Temp Pulse Resp BP Pulse Ox 09/14/20 04:35 98.4 F 68 16 125/61 99 Weight Admit Weight 97 lb 7.109 oz Weight 94 lb 12.78 oz I&O: 09/13/20 09/14/20 09/15/20 06:59 06:59 06:59 Intake Total 660 2230 Balance 660 2230 Result Diagrams: 09/13/20 16:52 09/14/20 04:06 Hospitalist ROS - Review of Systems Constitutional: reports: weakness. denies: fever, chills, sweats, malaise, other Eyes: denies: pain, vision change, conjunctivae inflammation, eyelid inflammation, redness, other ENT: denies: ear pain, ear discharge, nose pain, nose discharge, nose congestion, mouth pain, mouth swelling, throat pain, throat swelling, other Respiratory: denies: cough, dry, shortness of breath, hemoptysis, SOB with excertion, pleuritic pain, sputum, wheezing, other Cardiovascular: denies: chest pain, palpitations, orthopnea, paroxysmal noc. dyspnea, edema, light headedness, other Gastrointestinal: reports: hematochezia, other Genitourinary: denies: dysuria, frequency, incontinence, hematuria, retention, other Musculoskeletal: denies: neck pain, shoulder pain, arm pain, back pain, hand pain, leg pain, foot pain, other Skin: denies: rash, lesions, valeriy, bruising, other Neurological: denies: weakness, numbness, incoordination, change in speech, confusion, seizures, other - Medication Medications: Active Medications Generic Name Dose Route Start Last Admin Trade Name Freq PRN Reason Stop Dose Admin Anastrozole 1 mg 09/13/20 09:00 09/14/20 09:34 Anastrozole 1 Mg Tab PO 1 mg QAM YESI Administration Aspirin 81 mg 09/13/20 09:00 09/14/20 09:34 Aspirin 81 Mg Enteric Coated Tablet PO 81 mg DAILY YESI Administration Atorvastatin Calcium 10 mg 09/13/20 21:00 09/13/20 20:49 Atorvastatin Calcium 10 Mg Tab PO 10 mg HS YESI Administration Clopidogrel Bisulfate 75 mg 09/13/20 09:00 09/14/20 09:34 Clopidogrel Bisulfate 75 Mg Tab PO 75 mg DAILY YESI Administration Sodium Chloride 1,000 mls @ 60 mls/hr 09/12/20 19:45 09/14/20 01:26 Normal Saline 0.9% IV 1,000 mls .[id number] YESI Administration Insulin Glargine 10 units/ 0.1 mls @ 0 mls/hr 09/13/20 21:00 09/13/20 21:06 Miscellaneous Medication SC Not Given HS YESI Piperacillin Sod/Tazobactam 100 mls @ 200 mls/hr 09/13/20 14:00 09/14/20 09:34 Sod 4.5 gm/ Sodium Chloride IVPB 100 mls 0200,0800,1400,2000 YESI Administration Sodium Chloride 10 ml 09/13/20 09:00 09/13/20 20:45 Flush - Normal Saline 10 Ml Syringe IVF 10 ml Q12HR YESI Administration - Exam General Appearance: awake alert General - other findings: Elderly lady Eye: PERRL, anicteric sclera ENT: normocephalic atraumatic, no oropharyngeal lesions Neck: supple, symmetric, no JVD, no thyromegaly Heart: RRR, no murmur, no gallops, no rubs Respiratory: CTAB, no wheezes, no rales, no ronchi Gastrointestinal: soft, non-tender, non-distended, normal bowel sounds Extremities: no cyanosis, no clubbing, no edema Skin: no lesions, no rashes Neurological: cranial nerve grossly intact, no focal deficits Musculoskeletal: normal strength, no muscle wasting Psychiatric: normal affect, normal behavior Hosp A/P (1) Dementia Code(s): F03.90 - UNSPECIFIED DEMENTIA WITHOUT BEHAVIORAL DISTURBANCE Status: Acute Qualifiers: Dementia type: unspecified type Dementia behavioral disturbance: without behavioral disturbance Qualified Code(s): F03.90 - Unspecified dementia without behavioral disturbance Plan: Cont supportive care. (2) Diverticulitis Code(s): K57.92 - DVTRCLI OF INTEST, PART UNSP, W/O PERF OR ABSCESS W/O BLEED Status: Acute Plan: Still having bloody stools, but denies abd pain. Seen by GI, who recs to cont abx and full liquid diet. Colonoscopy in 4-6 weeks. (3) ANANYA (acute kidney injury) Code(s): N17.9 - ACUTE KIDNEY FAILURE, UNSPECIFIED Status: Acute Plan: Resolved. (4) Diarrhea Code(s): R19.7 - DIARRHEA, UNSPECIFIED Status: Acute Qualifiers: Diarrhea type: unspecified type Qualified Code(s): R19.7 - Diarrhea, unspecified Plan: Still having bloody stools. Will send for stool cx. (5) Breast cancer Status: Chronic Qualifiers: Breast location: unspecified site of breast Patient sex: female Laterality: right Qualified Code(s): C50.911 - Malignant neoplasm of unspecified site of right female breast Plan: No acute issues. Cont Anastrazole. (6) Diabetes 1.5, managed as type 2 Code(s): E13.9 - OTHER SPECIFIED DIABETES MELLITUS WITHOUT COMPLICATIONS Status: Chronic (7) Dehydration Code(s): E86.0 - DEHYDRATION Status: Resolved Plan: Resolved. (8) Anemia Code(s): D64.9 - ANEMIA, UNSPECIFIED Status: Chronic Qualifiers: Anemia type: unspecified type Qualified Code(s): D64.9 - Anemia, unspecified Plan: Stable despite GI loss. Cont to monitor Hg. (9) Abnormal CT scan, colon Code(s): R93.3 - ABNORMAL FINDINGS ON DX IMAGING OF PRT DIGESTIVE TRACT Status: Acute Plan: Seen by GI. Looks like pt has never had a colonoscopy. Not possible now in acute phase of GIB. Colonoscopy is planned for next 4-6 weeks as outpt. - Plan continue antibiotics, GI proph
--- NOTE | 2020-09-14 12:55 | PRG ---
DATE OF SERVICE: 09/14/2020 SUBJECTIVE: Ms. Ram continues to feel okay. She is not reporting any abdominal pain. There is no nausea or vomiting. She has been tolerating her liquid diet. She is continuing to have bowel movements, but the blood has cleared up. Stool is normal brown in color with just a slight reddish tinge at this point. She is feeling hungry and she has remained hemodynamically stable and afebrile. OBJECTIVE: VITAL SIGNS: Temperature 97.8, pulse 69, blood pressure 134/63, 98% oxygen saturation on room air. GENERAL: No acute distress, sitting up in bed comfortably . HEART: Regular rate and rhythm. LUNGS: Clear to auscultation bilaterally. ABDOMEN: Nondistended, bowel sounds present. Soft and nontender. EXTREMITIES: No peripheral edema. LABORATORY STUDIES: Hemoglobin stable, actually up to 11.1, WBC is 11.6, platelets 455. INR 0.9. Sodium 137, potassium 3.8, BUN 13, creatinine 0.98. CEA is only 0.93. Calcium 9.0. COVID PCR is negative. Blood cultures show no growth at 48 hours. ASSESSMENT AND PLAN: 1. Sigmoid diverticulitis with hemorrhage. 2. Anemia, stable. 3. Abnormal CT scan of the colon, demonstrating right colon thickening, cannot exclude neoplastic process. Clinically, the patient is doing very well with regard to the diverticulitis. The bleeding appears to be resolving and hemoglobin is stable. She continues on IV Zosyn. With minimal symptoms at this point, I think her diet can be advanced. If there is no further evidence of significant bleeding by tomorrow and she has been tolerating her diet, I think she could potentially be discharged to finish out a week-long course of oral antibiotics. I do think we need to plan for colonoscopy in 5 to 6 weeks, to follow up this abnormal CT finding, but would not do that in the acute setting of treating diverticulitis. We will have her follow up in GI clinic in about a month for planning purposes. 4. Please call back anytime with questions or concerns. Job ID: [id number]
[2020-09-14 13:01] VITALS: BMI 16.7
[2020-09-14] MEDS: Atorvastatin Calcium 10 MG TAB PO SCH (21:31)
[2020-09-14] MEDS: Insulin Glargine 10 UNITS in Pre-Filled Syringe 1 EACH SC SCH (21:32)
[2020-09-15] MEDS: Piperacillin/Tazobactam 4.5 GM in Sodium Chloride 0.9% 100 ML IVPB SCH ×4 (03:45→20:15)
[2020-09-15 04:27] LABS: #Basophils 0.1 thou/uL (0.0-0.2); #Eosinphils 0.2 thou/uL (0.0-0.7); #Lymphocytes 3.4 thou/uL (1.20-3.40); #Monocytes 0.6 thou/uL (0.11-0.59); #Neutrophils 4.6 thou/uL (1.40-6.50); %Basophils 0.7 % (0.0-1.0); %Eosinophils 2.4 % (0.0-10.0); %Lymphocytes 38.1 % (21.0-51.0); %Monocytes 7.2 % (0.0-10.0); %Neutrophils 51.6 % (42.0-75.0); Hemoglobin 10.4 g/dL (12.0-16.0); Mean Corpuscular Hemoglobin 30.3 pg (27.0-31.0); Mean Platelet Volume 6.8 fL (7.4-10.4); Platelet Count 365 thou/uL (130-400); RBC Distribution Width 13.3 % (11.5-14.5); Red Blood Cell (RBC) Count 3.42 mill/uL (4.20-5.40); White Blood Cell (WBC) Count 8.9 thou/uL (4.8-10.8)
[2020-09-15] MEDS: Sodium Chloride 0.9% 1,000 ML IV SCH (04:29)
[2020-09-15 04:47] LABS: Anion Gap 15 mmol/L (10-20); BUN (Urea Nitrogen) 14 mg/dL (9.8-20.1); Calc. Creatinine Clearance 27 mL/min (70-130); Calcium 8.9 mg/dL (7.8-10.44); Carbon Dioxide 23 mmol/L (23-31); Chloride 106 mmol/L (98-107); Estimated GFR-MDRD 48; Glucose 110 mg/dL (83-110); Potassium 3.8 mmol/L (3.5-5.1); Sodium 140 mmol/L (136-145)
--- NOTE | 2020-09-15 08:39 | PRG ---
DATE OF SERVICE: 09/15/2020 SUBJECTIVE: Ms. Ram is feeling fine. There is no abdominal pain or diarrhea. No nausea. She is starting on her breakfast. Hemoglobin remains stable. OBJECTIVE: VITAL SIGNS: Temperature 98, pulse 70, blood pressure 120/59, 98% oxygen saturation on room air. GENERAL: No acute distress. Pleasantly confused. HEART: Regular rate and rhythm. LUNGS: Clear to auscultation bilaterally. ABDOMEN: Nondistended. Bowel sounds present. Soft, nontender to palpation. EXTREMITIES: No peripheral edema. LABORATORY STUDIES: Hemoglobin stable at 10.4, WBC down to 8.9, platelets 365. Sodium 140, potassium 3.8, BUN 14, creatinine 1.09, glucose 103. ASSESSMENT AND PLAN: 1. Sigmoid diverticulitis with hemorrhage. 2. Anemia, stable since presentation. 3. Abnormal CT scan of the colon, demonstrating right colon thickening, cannot exclude neoplastic process. CEA level is normal. She still will need a followup colonoscopy in 5 to 6 weeks. Her acute episode appears to be resolving. She has been on IV Zosyn. I would recommend switching out to oral antibiotics such as Augmentin or Levaquin to complete a 7-day course of antibiotics, but she should be okay for hospital discharge from a GI perspective. GI will sign off, and we will plan to see her back in clinic in about a month for planning purposes. Please call anytime with questions or concerns. Job ID: [id number]
[2020-09-15] MEDS: Aspirin 81 mg Enteric Coated Tablet PO SCH (08:47)
[2020-09-15] MEDS: Anastrozole 1 MG TAB PO SCH (08:47)
--- NOTE | 2020-09-15 11:44 | PDOC.HOSPP ---
- Subjective Encounter Date: 09/15/20 Subjective: No new issues. Pt looks clinically better. More awake and interactive. - Objective Vital Signs & Weight: Vital Signs (12 hours) Temp Pulse Resp BP Pulse Ox 09/15/20 08:42 98 F 68 15 142/64 H 100 09/15/20 04:00 98 F 70 18 120/59 L 98 Weight Admit Weight 97 lb 7.109 oz Weight 94 lb 12.78 oz I&O: 09/14/20 09/15/20 09/16/20 06:59 06:59 05:59 Intake Total 2230 2490 Balance 2230 2490 Result Diagrams: 09/15/20 04:00 09/15/20 04:00 Additional Labs: Accuchecks 09/15/20 09/15/20 09/14/20 05:59 00:18 17:14 POC Glucose 103 H 98 119 H 09/14/20 09/13/20 01:39 11:59 POC Glucose 108 H 75 Hospitalist ROS - Review of Systems Constitutional: denies: fever, chills, sweats, weakness, malaise, other Eyes: denies: pain, vision change, conjunctivae inflammation, eyelid inflammation, redness, other ENT: denies: ear pain, ear discharge, nose pain, nose discharge, nose congestion, mouth pain, mouth swelling, throat pain, throat swelling, other Respiratory: denies: cough, dry, shortness of breath, hemoptysis, SOB with excertion, pleuritic pain, sputum, wheezing, other Gastrointestinal: reports: diarrhea. denies: nausea, vomiting, abdominal pain, constipation, melena, hematochezia, other Genitourinary: denies: dysuria, frequency, incontinence, hematuria, retention, other Musculoskeletal: denies: neck pain, shoulder pain, arm pain, back pain, hand pain, leg pain, foot pain, other Skin: denies: rash, lesions, valeriy, bruising, other Neurological: reports: weakness - Medication Medications: Active Medications Generic Name Dose Route Start Last Admin Trade Name Johnieq PRN Reason Stop Dose Admin Anastrozole 1 mg 09/13/20 09:00 09/15/20 08:47 Anastrozole 1 Mg Tab PO 1 mg QAM YESI Administration Aspirin 81 mg 09/13/20 09:00 09/15/20 08:47 Aspirin 81 Mg Enteric Coated Tablet PO 81 mg DAILY YESI Administration Atorvastatin Calcium 10 mg 09/13/20 21:00 09/14/20 21:31 Atorvastatin Calcium 10 Mg Tab PO 10 mg HS YESI Administration Sodium Chloride 1,000 mls @ 30 mls/hr 09/12/20 19:45 09/15/20 04:29 Normal Saline 0.9% IV Not Given .Q24H YESI Insulin Glargine 10 units/ 0.1 mls @ 0 mls/hr 09/13/20 21:00 09/14/20 21:32 Miscellaneous Medication SC Not Given HS YESI Piperacillin Sod/Tazobactam 100 mls @ 200 mls/hr 09/13/20 14:00 09/15/20 08:47 Sod 4.5 gm/ Sodium Chloride IVPB 100 mls 0200,0800,1400,2000 YESI Administration Sodium Chloride 10 ml 09/13/20 09:00 09/15/20 08:47 Flush - Normal Saline 10 Ml Syringe IVF 10 ml Q12HR YESI Administration - Exam General Appearance: NAD, awake alert Eye: PERRL, anicteric sclera ENT: normocephalic atraumatic, no oropharyngeal lesions Neck: supple, symmetric, no JVD, no thyromegaly Heart: RRR, no murmur, no gallops, no rubs Respiratory: CTAB, no wheezes, no rales, no ronchi Gastrointestinal: soft, non-tender, non-distended, normal bowel sounds Extremities: no cyanosis, no clubbing, no edema Skin: no lesions, no rashes Neurological: cranial nerve grossly intact, no focal deficits Musculoskeletal: normal strength, no muscle wasting Psychiatric: normal affect, normal behavior Hosp A/P (1) Dementia Code(s): F03.90 - UNSPECIFIED DEMENTIA WITHOUT BEHAVIORAL DISTURBANCE Status: Acute Qualifiers: Dementia type: unspecified type Dementia behavioral disturbance: without behavioral disturbance Qualified Code(s): F03.90 - Unspecified dementia without behavioral disturbance Plan: Stable, cont supportive care. (2) Diverticulitis Code(s): K57.92 - DVTRCLI OF INTEST, PART UNSP, W/O PERF OR ABSCESS W/O BLEED Status: Acute Plan: Improving, cont abx. Pt will f/u w GI as outpt for colonscopy in 4-6 months. (3) ANANYA (acute kidney injury) Code(s): N17.9 - ACUTE KIDNEY FAILURE, UNSPECIFIED Status: Acute Plan: Resolved. (4) Diarrhea Code(s): R19.7 - DIARRHEA, UNSPECIFIED Status: Acute Qualifiers: Diarrhea type: unspecified type Qualified Code(s): R19.7 - Diarrhea, unspecified Plan: Improving. (5) Breast cancer Status: Chronic Qualifiers: Breast location: unspecified site of breast Patient sex: female Laterality: right Qualified Code(s): C50.911 - Malignant neoplasm of unspecified site of right female breast Plan: No acute issues. (6) Diabetes 1.5, managed as type 2 Code(s): E13.9 - OTHER SPECIFIED DIABETES MELLITUS WITHOUT COMPLICATIONS Status: Chronic Plan: Controlled, cont med mgt. (7) Dehydration Code(s): E86.0 - DEHYDRATION Status: Resolved Plan: Resolved. (8) Anemia Code(s): D64.9 - ANEMIA, UNSPECIFIED Status: Chronic Qualifiers: Anemia type: unspecified type Qualified Code(s): D64.9 - Anemia, unspecified Plan: Hg remains stable. Will cont to monitor Hg. (9) Abnormal CT scan, colon Code(s): R93.3 - ABNORMAL FINDINGS ON DX IMAGING OF PRT DIGESTIVE TRACT Status: Acute - Plan continue antibiotics, GI proph PPx: SCDs. CODE: FULL. Dispo: cont current abx. D/c in 1-2 days.
[2020-09-15] MEDS: Atorvastatin Calcium 10 MG TAB PO SCH (20:17)
[2020-09-15] MEDS: Insulin Glargine 10 UNITS in Pre-Filled Syringe 1 EACH SC SCH (20:20)
[2020-09-16] MEDS: Piperacillin/Tazobactam 4.5 GM in Sodium Chloride 0.9% 100 ML IVPB SCH ×4 (02:02→19:08)
[2020-09-16] MEDS: Sodium Chloride 0.9% 1,000 ML IV SCH (04:57)
[2020-09-16 06:59] LABS: #Basophils 0.1 thou/uL (0.0-0.2); #Eosinphils 0.2 thou/uL (0.0-0.7); #Lymphocytes 2.8 thou/uL (1.20-3.40); #Monocytes 0.4 thou/uL (0.11-0.59); #Neutrophils 3.7 thou/uL (1.40-6.50); %Basophils 0.7 % (0.0-1.0); %Eosinophils 2.7 % (0.0-10.0); %Neutrophils 51.6 % (42.0-75.0); Hemoglobin 10.1 g/dL (12.0-16.0); Mean Corpuscular HGB CONC 33.6 g/dL (32.0-36.0); Mean Corpuscular Volume 89.3 fL (78.0-98.0); Mean Platelet Volume 6.5 fL (7.4-10.4); Platelet Count 386 thou/uL (130-400); RBC Distribution Width 13.4 % (11.5-14.5); Red Blood Cell (RBC) Count 3.36 mill/uL (4.20-5.40); White Blood Cell (WBC) Count 7.1 thou/uL (4.8-10.8)
[2020-09-16 07:23] LABS: Anion Gap 14 mmol/L (10-20); BUN (Urea Nitrogen) 12 mg/dL (9.8-20.1); Calc. Creatinine Clearance 29 mL/min (70-130); Calcium 9.1 mg/dL (7.8-10.44); Carbon Dioxide 21 mmol/L (23-31); Chloride 108 mmol/L (98-107); Estimated GFR-MDRD 52; Glucose 108 mg/dL (83-110); Sodium 139 mmol/L (136-145)
[2020-09-16] MEDS: Anastrozole 1 MG TAB PO SCH (08:36)
[2020-09-16] MEDS: Aspirin 81 mg Enteric Coated Tablet PO SCH (08:36)
[2020-09-16 08:41] VITALS: BP 118/56; TEMP 98
[2020-09-16] MEDS ORDERED: Amoxicillin/Potassium Clav 875 MG TAB PO SCH ×2 (11:45→21:00)
--- NOTE | 2020-09-17 10:52 | PQF ---
CLINICAL DOCUMENTATION CLARIFICATION FORM: Dear Dr. Zelaya Date: 09/17/2020 Please exercise your independent, professional judgment in responding to the clarification form. Clinical indicators are provided on the bottom of this form for your review. Please check appropriate box(es) to clarify if the following diagnosis has been ruled in our ruled out: SEPSIS [x ] Ruled in diagnosis [ ] Continue to treat [x ] Resolved [ ] Ruled out diagnosis [ ] Cannot rule out diagnosis [ ] Other diagnosis [ ] Unable to determine In addition, please specify: Present on Admission (POA): [ x ] Yes [ ] No [ ] Unable to determine For continuity of documentation, please document condition throughout progress notes and discharge summary. Thank You. CLINICAL INDICATORS - SIGNS / SYMPTOMS / LABS / RESULTS AND LOCATION IN EMR *ED 09/12: Vital Signs: * BP 86/48 119/68 Pulse 75-76 RR 18 O2 Sat Room Air Temp 98.3 (oral) * Did have one episode of hypotension here but does not appear altered. * Suspect patients abdominal pain and rectal bleeding are due to diverticulitis with evolving sepsis. *LAB (EMR): WBC Neutrophils% Band Lactic Acid 09/12 at 1652 9.5 57.9 2.8 09/12 at 1932 1.1 09/12 at 2001 1.4 09/13 at 0359 10.0 9 09/13 at 1652 11.6 57.8 09/15 - 09/16 7.1 - 8.9 51.6 *H&P 09/12 (Felipe): * Diverticulitis * Sepsis * Systolic blood pressure below 90 + elevated elevated LA at 2.[address] showing diverticulitis. *PN 09/13 (Ramsey): * ANANYA Resolved, continue IVF. * Dehydration Resolved. *Microbiology (EMR): * Collected 09/14 Stool Culture Final Pseudomonas aeruginosa * Collected 09/12 Blood Culture (x2 sets) Preliminary No growth at 48 hours RISK FACTORS / RESULTS AND LOCATION IN EMR *ED 09/12: * 79-year-old * Diverticulosis- with hemorrhage *H&P 09/12 (Felipe): Transferred from longterm. TREATMENTS / RESULTS AND LOCATION IN EMR *ED 09/12: Vancomycin IV, Zosyn IV, NS 30ml/kg IV. *H&P 09/12 (Felipe): Sepsis bundles started, cultures taken ivfs administered started on broad spectrum abx will continue with zosyn. *PN 09/13 (Ramsey): Cont current abx Continue IVF. *Consultation Gastroenterology 09/13 (Case) *LAB (EMR): Lactic Acid (x3) 09/12, CBC (x2) 09/13 , 09/15, 09/16 *Microbiology (EMR): Blood Cultures (x2) 09/12, Stool Culture 09/14 Thank you, Darcy CDS/Wire Fence Builder Signature: Darcy Kendall RN, CDS Phone #: [phone] [email or web address] This is a permanent part of the Medical Record [facility]
--- NOTE | 2020-09-18 11:42 | DIS ---
DATE OF ADMISSION: 09/12/2020 DATE OF DISCHARGE: 09/16/2020 DISCHARGE DISPOSITION: [facility]. PRIMARY DISCHARGE DIAGNOSES: Sepsis with diverticulitis and hemorrhage, resolving. SECONDARY DISCHARGE DIAGNOSES: Diabetes mellitus type 2, history of cerebrovascular accident, history of breast cancer, dementia. PROCEDURES DONE DURING HOSPITALIZATION: CT abdomen and pelvis done showed diverticulosis of the sigmoid colon with mural thickening, luminal narrowing and surrounding inflammatory changes suggestive of diverticulitis. There is focal area of luminal narrowing in the right colon, for which she should have an elective colonoscopy. Blood cultures x2, no growth. Stool for Campylobacter and Shiga toxins were negative. White count of 7, H and H 10 and 30, platelet count 386. BUN 12, creatinine 1.0. CEA levels were normal at 0.93. Albumin 3.2. COVID-19 PCR was not detected on 09/12/2020. INPATIENT CONSULT: Dr. Vincent Bynum for Gastroenterology. DISCHARGE MEDICATIONS: The patient to continue; 1. Augmentin 875 mg one tablet twice daily for 7 days. 2. Multivitamin one tablet once daily. 3. Colace 100 mg daily. 4. Ferrous sulfate 325 mg daily. 5. Trazodone 50 mg p.o. at bedtime. 6. Sertraline 75 mg p.o. daily. 7. Melatonin 10 mg p.o. at bedtime. 8. Aspirin 81 mg p.o. daily. 9. Atorvastatin 10 mg p.o. daily. 10. Donepezil 10 mg p.o. at bedtime. 11. Anastrozole 1 mg p.o. q.a.m. ALLERGIC: To sulfa and codeine. DISCHARGE PLAN: The patient to follow up with Dr. Vincent Bynum in 3 to 4 weeks for an elective colonoscopy. She needs to follow up with her primary care physician at the [facility] in 1 week. BRIEF COURSE DURING HOSPITALIZATION: The patient initially was sent over from [facility] with complaints of rectal bleeding. Her initial CAT scan was consistent with sigmoid diverticulitis with bleeding. The patient was admitted to medical floor and was placed on broad-spectrum antibiotics. She has responded well to above measures. Her H and H's remained stable with no transfusions done during her stay here. She has had consultation with Dr. Vincent Bynum. CAT scan showed neural thickening in the right colon in addition to sigmoid diverticulitis. The patient will need outpatient colonoscopy once her current diverticulitis resolves. She needs to follow up with Dr. Vincent Bynum in 3 to 4 weeks. Prior to discharge, she is tolerating oral solid diet. A total of 35 minutes was spent on discharge plan. Please note, I have seen and examined the patient on the day of discharge. Job ID: [id number]
== END 2020-09-16 19:36 | DRG 871 ==
LOC: ERS 16:07 → 2NO 19:43 → ONC 09-15 17:41
PROVIDERS: ADMIT Internal Medicine; ATTEND Internal Medicine
DX: A41.9 Sepsis, unspecified organism (principal); K57.33 Diverticulitis of large intestine without perforation or abscess with bleeding; N17.9 Acute kidney failure, unspecified; E11.9 Type 2 diabetes mellitus without complications; K21.9 Gastro-esophageal reflux disease without esophagitis; I10 Essential (primary) hypertension; E78.5 Hyperlipidemia, unspecified; D50.9 Iron deficiency anemia, unspecified; G30.9 Alzheimer's disease, unspecified; F02.80 Dementia in other diseases classified elsewhere, unspecified severity, without behavioral disturbance, psychotic disturbance, mood disturbance, and anxiety; F41.9 Anxiety disorder, unspecified; C50.911 Malignant neoplasm of unspecified site of right female breast; E86.0 Dehydration; I25.10 Atherosclerotic heart disease of native coronary artery without angina pectoris; F32.9 Major depressive disorder, single episode, unspecified; Z90.49 Acquired absence of other specified parts of digestive tract; Z90.710 Acquired absence of both cervix and uterus; Z88.2 Allergy status to sulfonamides; Z88.5 Allergy status to narcotic agent; Z79.82 Long term (current) use of aspirin; Z79.84 Long term (current) use of oral hypoglycemic drugs; Z79.899 Other long term (current) drug therapy; Z86.73 Personal history of transient ischemic attack (TIA), and cerebral infarction without residual deficits
CPT/HCPCS: 36415; 36416; 74177; 80048; 80053; 82274; 82378; 83605; 85007; 85025; 85027; 85610; 85730; 86850; 86900; 86901; 87040; 87045; 87046; 87081; 87427; 87449; 87635; J1815; J2543; J3370; J3490; Q9967; U0003

== ENCOUNTER 2024-06-01 23:20 | Emergency (ER) | payer MEDICARE, SELFPAY | END 2024-06-02 04:38 | disposition home or self-care (01) | LOC: ERS 23:20 | DX: S00.03XA Contusion of scalp, initial encounter (principal); E11.9 Type 2 diabetes mellitus without complications; I10 Essential (primary) hypertension; W19.XXXA Unspecified fall, initial encounter | CPT/HCPCS: 70450; 71045; 72125 ==